=== PATIENT | male | born 1975 | race African-American/Black ===

== ENCOUNTER 2018-07-19 09:39 | Emergency (ER) | payer SELFPAY ==
[2018-07-19] MEDS ORDERED: OXYCODONE-ACETAMINOPHEN 5-325 MG TABLET PO ONE (10:08)
[2018-07-19] MEDS ORDERED: CEPHALEXIN 500 MG CAPSULE PO ONE (10:08)
[2018-07-19] MEDS ORDERED: SULFAMETHOXAZOLE/TRIMETHOPRIM 800-160 MG TABLET PO ONE (10:08)
--- NOTE | 2018-07-19 10:09 | ER Document Report ---
HPI - HPI Patient complains to provider of: Lump to right chest Onset: Other - 6 months Onset/Duration: Worse Quality of pain: Achy Pain Level: 4 Context: Patient complains of a lump to the right chest area that started to increase in size and tenderness over the past 4 days. Patient denies any fever or history of MRSA. Associated Symptoms: Other - Tender lump to right chest wall. denies: Fever Exacerbated by: Movement Relieved by: Denies Similar symptoms previously: No Recently seen / treated by doctor: No - ROS ROS below otherwise negative: Yes Systems Reviewed and Negative: Yes All other systems reviewed and negative - CONSTITUTIONAL Constitutional: DENIES: Fever - GASTROINTESTINAL Gastrointestinal: DENIES: Nausea - DERM Skin Color: Erythema Notes: Tender lump to the chest wall area Past Medical History - General Information source: Patient - Social History Smoking Status: Current Every Day Smoker Smoking Education Provided: Yes Frequency of alcohol use: None Drug Abuse: None 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 IN LAST 30 DAYS: No - HEENT HEENT: Atraumatic, Normocephalic - NECK Neck: Normal Inspection - RESPIRATORY Respiratory: No Respiratory Distress - BACK Back: Normal Inspection - MUSCULOSKELETAL/EXTREMETIES Musculoskeletal/Extremeties: MAEW, FROM - NEURO Level of Consciousness: Awake, Alert, Appropriate Motor/Sensory: No Motor Deficit - DERM Integumentary: Warm, Dry, Abscess - Right anterior chest wall area with overlying erythema Course - Vital Signs Vital signs: Temp Pulse Resp BP Pulse Ox 98.6 F 78 14 126/77 H 99 07/19/18 09:44 07/19/18 09:44 07/19/18 09:44 07/19/18 09:44 07/19/18 09:44 Procedures - Incision and Drainage Right Chest Type: Simple Anesthetic type: 1% Lidocaine Blade size: 11 I&D procedure: Betadine prep applied Incision Method: Incision made by scalpel Amount/type of drainage: mod amount of purulent drainage Adult Front & Back picture: 1 - abscess Discharge - Discharge Clinical Impression: Abscess, Encounter for incision and drainage procedure Condition: Stable Disposition: HOME, SELF-CARE Instructions: Abscess ([facility]), Cephalexin ([facility]), Post Incision and Drainage, Trimethoprim-Sulfa ([facility]) Additional Instructions: Return immediately for any new or worsening symptoms Followup with your primary care provider, call tomorrow to make a followup appointment Prescriptions: Cephalexin Monohydrate [Keflex 500 mg Capsule] 500 mg PO Q6H 5 Days capsule Naproxen [Naprosyn 250 Nmg Tablet] 1 tab PO BID #14 tablet Sulfamethoxazole/Trimethoprim [Bactrim Ds Tablet] 1 each PO BID #20 tablet Forms: Smoking Cessation Education, Return to Work Referrals: [facility] [Provider Group] - Follow up as needed
[2018-07-19 10:56] VITALS: BP 103/83
== END 2018-07-19 10:56 | disposition home or self-care (01) ==
LOC: ER 09:39
DX: L02.213 Cutaneous abscess of chest wall (principal); F17.200 Nicotine dependence, unspecified, uncomplicated
CPT/HCPCS: 99283

== ENCOUNTER 2019-03-09 06:09 | Emergency (ER) | payer SELFPAY ==
[2019-03-09 06:13] VITALS: BP 146/94
[2019-03-09] MEDS ORDERED: BENZONATATE 100 MG CAPSULE PO ONE (07:15)
[2019-03-09] MEDS ORDERED: AZITHROMYCIN 250 MG TABLET PO ONE (07:15)
[2019-03-09] MEDS ORDERED: PREDNISONE 20 MG TABLET PO ONE (07:15)
--- NOTE | 2019-03-09 15:37 | ER Document Report ---
Entered by BUDDY VEE SCRIBE 03/09/19 0719 Acting as scribe for:BIRD POWERS MD ED General - General Chief Complaint: Cough Stated Complaint: CHEST PAIN Time Seen by Provider: 03/09/19 07:05 Mode of Arrival: Ambulatory Information source: Patient Notes: Patient is a 43 year old male presenting to the emergency department complaining of a productive cough onset 2 weeks ago. Patient describes the cough as productive with green sputum that is worse in the morning. He states the cough has been progressively worsening over the last 2 weeks. He also complains of chest tightness only with cough. He denies any fevers. TRAVEL OUTSIDE OF THE [place] 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 Family History: Reviewed & Not Pertinent Patient has suicidal ideation: No Patient has homicidal ideation: No Review of Systems - Review of Systems Constitutional: No symptoms reported EENT: No symptoms reported Cardiovascular: See HPI Respiratory: See HPI, Cough, Sputum Gastrointestinal: No symptoms reported Genitourinary: No symptoms reported Male Genitourinary: No symptoms reported Musculoskeletal: No symptoms reported Hematologic/Lymphatic: No symptoms reported Neurological/Psychological: No symptoms reported -: Yes All other systems reviewed and negative Physical Exam - Vital signs Vitals: Temp Pulse Resp BP Pulse Ox 98.1 F 75 20 146/94 H 96 03/09/19 06:12 03/09/19 06:12 03/09/19 06:12 03/09/19 06:12 03/09/19 06:12 - Notes Notes: GENERAL: Alert, interacts well. No acute distress. HEAD: Normocephalic, atraumatic. EYES: Pupils equal, round, and reactive to light. Extraocular movements intact. ENT: Oral mucosa moist, tongue midline. Nares patent, no nasal septal hematoma, TM's intacts. NECK: Full range of motion. Supple. Trachea midline. LUNGS: Coarse breath sounds. Bronchitic cough with minimal rhonchi. No respiratory distress. HEART: Regular rate and rhythm. No murmurs, gallops, or rubs. ABDOMEN: Soft, non-tender. Non-distended. Bowel sounds present in all 4 quadrants. No guarding, rigidity, or rebound. EXTREMITIES: Moves all 4 extremities spontaneously. No edema, radial and dorsalis pedis pulses 2/4 bilaterally. No cyanosis. NEUROLOGICAL: Alert and oriented x3. Normal speech. PSYCH: Normal affect, normal mood. SKIN: Warm, dry, normal turgor. No rashes or lesions noted. Course - Vital Signs Vital signs: Temp Pulse Resp BP Pulse Ox 98.1 F 75 20 146/94 H 96 03/09/19 06:12 03/09/19 06:12 03/09/19 06:12 03/09/19 06:12 03/09/19 06:12 Discharge - Discharge Clinical Impression: Bronchitis Condition: Stable Disposition: HOME, SELF-CARE Additional Instructions: Bronchitis You have acute bronchitis. This disease is an infection or inflammation of the air passageways in your lungs. Symptoms usually include cough, low grade fever, shortness of breath, and wheezing. The cough usually persists for a couple of weeks. Most cases of bronchitis get better without antibiotics. We prescribe antibiotics when we believe bacteria are damaging your airways, or if there's high risk the bronchitis will worsen into pneumonia. Increase your fluid intake. A cool mist humidifier may make your lungs more comfortable. An expectorant (cough medicine that loosens phlegm) can help. If you smoke, STOP!!! Recovery from bronchitis can be somewhat slow, but you should see improvement within a day or two. Repeated episodes of bronchitis may result in lung damage -- for example, chronic bronchitis, recurrent pneumonias, or emphysema. Call the doctor if you develop increasing fever, shortness of breath, chest pain, bloody sputum, or otherwise worsen. If you have not improved at all after several days, contact the physician. Start the azithromycin antibiotic tomorrow. You have had today's dose here in the emergency room. Start the prednisone later this afternoon. Take the Tessalon Perles every 6-8 hours as needed to help control your cough. Try adding the generic version of Delsym DM to help control your cough. Drink plenty of fluids throughout the day in the evening. Try to rest as much as possible. Follow-up with a local medical doctor if not improving over the next several days. RETURN TO THE EMERGENCY ROOM IF ANY NEW OR WORSENING SYMPTOMS. Prescriptions: Azithromycin [Zithromax 250 mg Tablet] 250 mg PO DAILY #4 tablet Benzonatate [Tessalon Perles 100 mg Capsule] 100 mg PO ASDIR PRN #30 capsule PRN Reason: Prednisone [Deltasone 10 mg Tablet] 10 mg PO TID #10 tablet Scribe Attestation: 03/09/19 07:15 I personally performed the services described in the documentation, reviewed and edited the documentation which was dictated to the scribe in my presence, and it accurately records my words and actions. I personally performed the services described in the documentation, reviewed and edited the documentation which was dictated to the scribe in my presence, and it accurately records my words and actions.
== END 2019-03-09 07:39 | disposition home or self-care (01) ==
LOC: ER 06:09
DX: J40 Bronchitis, not specified as acute or chronic (principal); R05 Cough; R07.89 Other chest pain; F17.210 Nicotine dependence, cigarettes, uncomplicated
CPT/HCPCS: 99283; J7512

== ENCOUNTER 2019-04-05 17:33 | Emergency (ER) | payer SELFPAY ==
[2019-04-05] MEDS ORDERED: ASPIRIN 81 MG TABLET, CHEWABLE PO ONE (18:13)
--- NOTE | 2019-04-05 18:14 | ER Document Report ---
ED Medical Screen (RME) - General Chief Complaint: Chest Pain Stated Complaint: CHEST PAIN Time Seen by Provider: 04/05/19 18:13 Mode of Arrival: Ambulatory Information source: Patient Notes: Patient presents complaining of left-sided chest pain left upper quadrant pain for the past 2 days. Patient does report shortness of breath. No cough or cold symptoms, no nausea or vomiting. No significant medical history. I have greeted and performed a rapid initial assessment of this patient. A comprehensive ED assessment and evaluation of the patient, analysis of test results and completion of the medical decision making process will be conducted by additional ED providers. TRAVEL OUTSIDE OF THE [place] IN LAST 30 DAYS: No - Related Data Allergies/Adverse Reactions: No Known Allergies Allergy (Verified 04/05/19 17:34) Past Medical History Renal/ Medical History: Denies: Hx Peritoneal Dialysis Physical Exam - Vital signs Vitals: Temp Pulse Resp BP Pulse Ox 98.4 F 86 18 138/90 H 99 04/05/19 17:35 04/05/19 17:35 04/05/19 17:35 04/05/19 17:35 04/05/19 17:35 - Cardiovascular Rhythm: Regular Heart sounds: S1 appreciated, S2 appreciated Murmur: No Course - Vital Signs Vital signs: Temp Pulse Resp BP Pulse Ox 98.4 F 86 18 138/90 H 99 04/05/19 17:35 04/05/19 17:35 04/05/19 17:35 04/05/19 17:35 04/05/19 17:35
[2019-04-05 18:38] LABS: ABSOLUTE BASOPHILS # (AUTO) 0.1 10^3/uL (0.0-0.2); ABSOLUTE EOSINOPHILS # (AUTO) 0.1 10^3/uL (0.0-0.6); ABSOLUTE MONOCYTES (AUTO) 0.7 10^3/uL (0.1-1.4); BASOPHILS % (AUTO) 0.9 % (0-2); EOSINOPHILS % (AUTO) 1.6 % (0-6); HEMATOCRIT 43.6 % (37.9-51.0); HEMOGLOBIN 14.9 g/dL (13.5-17.0); LYMPHOCYTES % (AUTO) 33.4 % (13-45); MEAN CORPUSCULAR HEMOGLOBIN 30.5 pg (27.0-33.4); MEAN CORPUSCULAR HGB CONC 34.3 g/dL (32.0-36.0); MEAN CORPUSCULAR VOLUME 89 fl (80-97); MONOCYTES % (AUTO) 8.2 % (3-13); PLATELET COUNT 218 10^3/uL (150-450); RED BLOOD COUNT 4.91 10^6/uL (4.35-5.55); RED CELL DISTRIBUTION WIDTH 13.3 % (11.5-14.0); SEGMENTED NEUTROPHILS % (AUTO) 55.9 % (42-78); TOTAL CELLS COUNTED % (AUTO) 100 %
[2019-04-05 18:59] LABS: ALANINE AMINOTRANSFERASE 65 U/L (21-72); ALBUMIN 4.7 g/dL (3.5-5.0); ALKALINE PHOSPHATASE 66 U/L (38-126); ANION GAP 9 (5-19); ASPARTATE AMINO TRANSFERASE 40 U/L (17-59); BILIRUBIN,DIRECT 0.2 mg/dL (0.0-0.4); BILIRUBIN,TOTAL 0.4 mg/dL (0.2-1.3); BLOOD UREA NITROGEN 26 mg/dL (7-20); CALCIUM 9.6 mg/dL (8.4-10.2); CARBON DIOXIDE 26 mmol/L (22-30); CHLORIDE 103 mmol/L (98-107); GLUCOSE 87 mg/dL (75-110); LIPASE 358.2 U/L (23-300); POTASSIUM 4.2 mmol/L (3.6-5.0); SODIUM 137.9 mmol/L (137-145); TOTAL PROTEIN 7.7 g/dL (6.3-8.2)
--- NOTE | 2019-04-05 19:01 | RADIOLOGY REPORT (SQ) ---
EXAM DESCRIPTION: CHEST 2 VIEWS COMPLETED DATE/TIME: 04/05/2019 6:46 pm REASON FOR STUDY: cp COMPARISON: None. EXAM PARAMETERS: NUMBER OF VIEWS: two views TECHNIQUE: Digital Frontal and Lateral radiographic views of the chest acquired. RADIATION DOSE: NA LIMITATIONS: none FINDINGS: LUNGS AND PLEURA: No opacities, masses or pneumothorax. No pleural effusion. MEDIASTINUM AND HILAR STRUCTURES: No masses or contour abnormalities. HEART AND VASCULAR STRUCTURES: Heart normal size. No evidence for failure. BONES: No acute findings. HARDWARE: None in the chest. OTHER: No other significant finding. IMPRESSION: NO ACUTE RADIOGRAPHIC FINDING IN THE CHEST. TECHNICAL DOCUMENTATION: JOB ID: [id number] [employer] All Rights Reserved Reading location - IP/workstation name: [email or web address]
[2019-04-05] MEDS ORDERED: NORMAL SALINE 1000 ML 1,000 ML IV ONE (20:11)
--- NOTE | 2019-04-05 20:27 | EKG REPORT ---
SEVERITY:- ABNORMAL ECG - SINUS RHYTHM LEFT VENTRICULAR HYPERTROPHY : Confirmed by: Daisy Suresh 05-Apr-2019 20:26:22
--- NOTE | 2019-04-05 21:21 | RADIOLOGY REPORT (SQ) ---
EXAM DESCRIPTION: US ABDOMEN LIMITED COMPLETED DATE/TME: 04/05/2019 20:11 CLINICAL HISTORY: 43 years, Male, cp, elevated lipase EXAM DESCRIPTION: CLINICAL HISTORY: cp, elevated lipase COMPARISON: None. FINDINGS: Sonography was performed of the right upper quadrant. The pancreas is poorly seen because of bowel gas. The pancreatic head appears normal. Aorta appears normal. Liver span is 15.6 cm, and the liver is heterogeneous and hypoechoic area in the left lobe could represent a mass measuring 22 x 22 x 26 mm. Flow in the main portal vein is in the expected direction. Gallbladder is contracted. This is despite fasting for four hours. No sonographic Castillo's sign. Gallbladder wall is not thickened. Common duct is normal at 4.6 mm diameter. Right kidney measures 10.6 cm in span. No other acute abnormality. No calcified gallstones or pericholecystic fluid. No hydronephrosis. No renal stones are seen. IMPRESSION: Possible hepatic focal mass. Poor visualization of the pancreas. Follow-up of the liver possible mass is recommended.
--- NOTE | 2019-04-05 21:39 | ER Document Report ---
ED General - General Chief Complaint: Chest Pain Stated Complaint: CHEST PAIN Time Seen by Provider: 04/05/19 18:13 Primary Care Provider: [facility] [Provider Group] - Follow up in 3-5 days (primary care. ) PATRICIA BRAND MD [ACTIVE STAFF] - Follow up in 3-5 days (cardiology ) LASHAWN MALLORY MD [ACTIVE STAFF] - Follow up in 3-5 days (primary care. ) Mode of Arrival: Ambulatory Notes: Patient is a 43-year-old male that presents to the emergency department for chief complaint of chest pain. The patient reports that the pain started about a week ago. The currently rate the pain as 1 out of 10, and described as tingling sensation on his left side any points of the ribs laterally. They have had associated shortness of breath and cough. Denies any worsening on exertion, nausea, vomiting, diaphoresis. Their risk factors for heart disease include smoking, denies family history of early coronary disease, denies hypertension, diabetes, hyperlipidemia or obesity. Past Medical History: Denies chronic medical conditions Past Surgical History: Denies surgical history Social History: Admits to smoking cigarettes, denies alcohol or illicit drug use. Family History: Reviewed and noncontributory for presenting illness Allergies: Reviewed, see documented allergy list. REVIEW OF SYSTEMS: Other than noted above, the 12 point review of systems was reviewed with the patient and were negative, all pertinent findings are included in the HPI. PHYSICAL EXAMINATION: Vital signs reviewed, nursing noted reviewed. GENERAL: Well-appearing, well-nourished and in no acute distress. HEAD: Atraumatic, normocephalic. EYES: Eyes appear normal, extraocular movements intact, sclera anicteric, conjunctiva are normal. ENT: nares patent, oropharynx clear without exudates. Moist mucous membranes. NECK: Normal range of motion, supple without lymphadenopathy LUNGS: Breath sounds clear to auscultation bilaterally and equal. No wheezes rales or rhonchi. HEART: Regular rate and rhythm without murmurs ABDOMEN: Soft, nontender, normoactive bowel sounds. No rebound, guarding, or rigidity. No masses appreciated. EXTREMITIES: Nontender, good range of motion, no pitting or edema. NEUROLOGICAL: No focal neurological deficits. Moves all extremities spontaneously Motor and sensory grossly intact on exam. PSYCH: Normal mood, normal affect. SKIN: Warm, Dry, normal turgor, no rashes or lesions noted on exposed skin TRAVEL OUTSIDE OF THE [place] IN LAST 30 DAYS: No - Related Data Allergies/Adverse Reactions: No Known Allergies Allergy (Verified 04/05/19 17:34) Past Medical History - General Information source: Patient - Social History Smoking Status: Current Every Day Smoker Chew tobacco use (# tins/day): No Frequency of alcohol use: None Drug Abuse: None Family History: Reviewed & Not Pertinent Patient has suicidal ideation: No Patient has homicidal ideation: No Renal/ Medical History: Denies: Hx Peritoneal Dialysis Physical Exam - Vital signs Vitals: Temp Pulse Resp BP Pulse Ox 98.4 F 86 18 138/90 H 99 04/05/19 17:35 04/05/19 17:35 04/05/19 17:35 04/05/19 17:35 04/05/19 17:35 Course - Re-evaluation Re-evalutation: Presentation of chest pain in an otherwise well appearing patient. Low clinical suspicion for ACS given clinical history, exam, EKG without ST elevations or depressions, and negative initial troponin. HEART score less than or equal to 3. PE also seems unlikely given clinical history, absence of tachycardia or dyspnea. Patient is PERC criteria negative. CXR without evidence of pneumothorax or pneumonia. No widened mediastinum. Aortic dissection also seems unlikely given history, symmetric pulses, CXR, and vitals. HEART Score: History 0 ECG 0 Age 0 Risk Factors 0 Troponin 0 Total: 0 Chest pain in a patient without evidence of cardiac or other serious etiology on workup today. I discussed with patient that, based on their age, risk factors and emergency department testing today, the likelihood that their symptoms are related to a heart attack is very low (estimated risk of heart attack or over the next 30 days of less than 1%). The patient demonstrates decision making capacity and has verbalized an understanding of these risks to me. Based on this, the patient has chosen to follow-up as an outpatient. Usual chest pain return precautions reviewed. The patient states understanding and agreement with this plan. Repeat troponin was negative as well, patient appeared well on exam, for unclear reasons a right upper quadrant ultrasound was ordered in triage, this demonstrated a possible liver lesion, I reviewed these results with the patient and gave him a copy and stated he needs to follow-up with a dedicated liver ultrasound, which he is agreeable to, I asked him to follow-up with cardiology as well if his symptoms persisted, I do feel the symptoms are most likely pleurisy, and prescribed him naproxen to take which patient was agreeable to. Laboratory 04/05/19 04/05/19 04/05/19 18:25 18:25 18:25 WBC 9.0 RBC 4.91 Hgb 14.9 Hct 43.6 MCV 89 MCH 30.5 MCHC 34.3 RDW 13.3 Plt Count 218 Seg Neutrophils % 55.9 Lymphocytes % 33.4 Monocytes % 8.2 Eosinophils % 1.6 Basophils % 0.9 Absolute Neutrophils 5.0 Absolute Lymphocytes 3.0 Absolute Monocytes 0.7 Absolute Eosinophils 0.1 Absolute Basophils 0.1 Sodium 137.9 Potassium 4.2 Chloride 103 Carbon Dioxide 26 Anion Gap 9 BUN 26 H Creatinine 1.32 H Est GFR ( Amer) > 60 Est GFR (Non-Af Amer) > 60 Glucose 87 Calcium 9.6 Total Bilirubin 0.4 Direct Bilirubin 0.2 Neonat Total Bilirubin Not Reportable Neonat Direct Bilirubin Not Reportable Neonat Indirect Bili Not Reportable AST 40 ALT 65 Alkaline Phosphatase 66 Troponin I 0.018 Total Protein 7.7 Albumin 4.7 Lipase 358.2 H 04/05/19 21:55 WBC RBC Hgb Hct MCV MCH MCHC RDW Plt Count Seg Neutrophils % Lymphocytes % Monocytes % Eosinophils % Basophils % Absolute Neutrophils Absolute Lymphocytes Absolute Monocytes Absolute Eosinophils Absolute Basophils Sodium Potassium Chloride Carbon Dioxide Anion Gap BUN Creatinine Est GFR ( Amer) Est GFR (Non-Af Amer) Glucose Calcium Total Bilirubin Direct Bilirubin Neonat Total Bilirubin Neonat Direct Bilirubin Neonat Indirect Bili AST ALT Alkaline Phosphatase Troponin I 0.018 Total Protein Albumin Lipase Chest X-Ray 04/05/19 18:13 IMPRESSION: NO ACUTE RADIOGRAPHIC FINDING IN THE CHEST. Abdomen Ultrasound 04/05/19 20:11 IMPRESSION: Possible hepatic focal mass. Poor visualization of the pancreas. Follow-up of the liver possible mass is recommended. - Vital Signs Vital signs: Temp Pulse Resp BP Pulse Ox 98.4 F 86 17 134/105 H 100 04/05/19 17:35 04/05/19 17:35 04/05/19 23:05 04/05/19 23:06 04/05/19 23:05 - Laboratory Result Diagrams: 04/05/19 18:25 04/05/19 18:25 Laboratory results interpreted by me: 04/05/19 18:25 BUN 26 H Creatinine 1.32 H Lipase 358.2 H - EKG Interpretation by Me Additional EKG results interpreted by me: EKG demonstrates sinus rhythm with a ventricular rate of 85 bpm, slight left axis deviation, QTC 420 ms, there is a nonspecific T wave inversion in lead III, no ST elevation, and no prior for comparison. Discharge - Discharge Clinical Impression: Lesion of liver Chest pain Qualifiers: Chest pain type: unspecified Qualified Code(s): R07.9 - Chest pain, unspecified Condition: Stable Disposition: HOME, SELF-CARE Instructions: Chest Pain of Unclear Cause ([facility]) Additional Instructions: Please follow-up with a ged teacher, and also when she to follow-up with a primary care physician, there is a questionable lesion on your liver on the ultrasound, of uncertain cause, and this will need to be followed up on in the future with a dedicated imaging of the liver itself. I have provided you a copy of these results to take to the primary care office. I also want you to follow- up with a ged teacher to have a stress test sometime in the next 2 weeks. Prescriptions: RX: Naproxen [Naprosyn] 500 mg PO BID #30 tablet Referrals: LASHAWN MALLORY MD [ACTIVE STAFF] - Follow up in 3-5 days (primary care. ) [facility] [Provider Group] - Follow up in 3-5 days (primary care. ) PATRICIA BRAND MD [ACTIVE STAFF] - Follow up in 3-5 days (cardiology )
[2019-04-05 23:07] VITALS: BP 134/105
== END 2019-04-05 23:07 | disposition home or self-care (01) ==
LOC: ER 17:33
DX: R07.9 Chest pain, unspecified (principal); K76.9 Liver disease, unspecified; R06.02 Shortness of breath; R05 Cough; F17.210 Nicotine dependence, cigarettes, uncomplicated
CPT/HCPCS: 36415; 71046; 76705; 80053; 83690; 84484; 85025; 93005; 93010; 99285

== ENCOUNTER 2019-05-04 09:53 | Emergency (ER) | payer SELFPAY ==
[2019-05-04 10:21] VITALS: BP 135/90
[2019-05-04] MEDS ORDERED: ASPIRIN 81 MG TABLET, CHEWABLE PO ONE (10:27)
--- NOTE | 2019-05-04 10:28 | ER Document Report ---
ED Medical Screen (RME) - General Chief Complaint: Chest Pain Stated Complaint: CHEST PAIN Time Seen by Provider: 05/04/19 10:26 Mode of Arrival: Ambulatory Information source: Patient Notes: 43-year-old male presented to ED for complaint of chest pain off and on for the last 3 days. He states is intermittent pulsating pain. He states it will pulsate sometimes for a while and then. Patient states the pain also causes his left arm and fingers to go numb. He does not have any history of this in the past. He states he is trying to stop smoking and has had a patch on for 2 weeks and has not smoked. He does drink alcohol daily and does not do any drugs. Patient is alert oriented respirations regular and unlabored speaking in full sentences walks with a even steady gait. I have greeted and performed a rapid initial assessment of this patient. A comprehensive ED assessment and evaluation of the patient, analysis of test results and completion of medical decision making process will be conducted by an additional ED providers. Dictation of this chart was performed using voice recognition software; therefore, there may be some unintended grammatical errors. TRAVEL OUTSIDE OF THE [place] IN LAST 30 DAYS: No - Related Data Allergies/Adverse Reactions: No Known Allergies Allergy (Verified 05/04/19 09:54) Past Medical History Renal/ Medical History: Denies: Hx Peritoneal Dialysis Physical Exam - Vital signs Vitals: Temp Pulse Resp BP Pulse Ox 98.3 F 76 16 135/90 H 100 05/04/19 10:20 05/04/19 10:20 05/04/19 10:20 05/04/19 10:20 05/04/19 10:20 Course - Vital Signs Vital signs: Temp Pulse Resp BP Pulse Ox 98.3 F 76 16 135/90 H 100 05/04/19 10:20 05/04/19 10:20 05/04/19 10:20 05/04/19 10:20 05/04/19 10:20
--- NOTE | 2019-05-04 11:03 | RADIOLOGY REPORT (SQ) ---
EXAM DESCRIPTION: CHEST 2 VIEWS COMPLETED DATE/TIME: 05/04/2019 10:56 am REASON FOR STUDY: Chest pain COMPARISON: 04/05/2019 EXAM PARAMETERS: NUMBER OF VIEWS: two views TECHNIQUE: Digital Frontal and Lateral radiographic views of the chest acquired. RADIATION DOSE: NA LIMITATIONS: none FINDINGS: LUNGS AND PLEURA: No opacities, masses or pneumothorax. No pleural effusion. MEDIASTINUM AND HILAR STRUCTURES: No masses or contour abnormalities. HEART AND VASCULAR STRUCTURES: Heart normal size. No evidence for failure. BONES: No acute findings. HARDWARE: None in the chest. OTHER: No other significant finding. IMPRESSION: NO ACUTE RADIOGRAPHIC FINDING IN THE CHEST. TECHNICAL DOCUMENTATION: JOB ID: [id number] [employer]- All Rights Reserved Reading location - IP/workstation name: [email or web address]
[2019-05-04 11:22] LABS: ABSOLUTE BASOPHILS # (AUTO) 0.1 10^3/uL (0.0-0.2); ABSOLUTE EOSINOPHILS # (AUTO) 0.1 10^3/uL (0.0-0.6); ABSOLUTE LYMPHOCYTES (AUTO) 2.2 10^3/uL (0.5-4.7); ABSOLUTE MONOCYTES (AUTO) 0.6 10^3/uL (0.1-1.4); ABSOLUTE NEUT (AUTO) 3.5 10^3/uL (1.7-8.2); BASOPHILS % (AUTO) 0.8 % (0-2); EOSINOPHILS % (AUTO) 1.8 % (0-6); HEMOGLOBIN 14.9 g/dL (13.5-17.0); MEAN CORPUSCULAR HEMOGLOBIN 30.3 pg (27.0-33.4); MEAN CORPUSCULAR HGB CONC 33.8 g/dL (32.0-36.0); MEAN CORPUSCULAR VOLUME 90 fl (80-97); MONOCYTES % (AUTO) 9.6 % (3-13); PLATELET COUNT 220 10^3/uL (150-450); RED BLOOD COUNT 4.91 10^6/uL (4.35-5.55); RED CELL DISTRIBUTION WIDTH 13.5 % (11.5-14.0); SEGMENTED NEUTROPHILS % (AUTO) 53.8 % (42-78); TOTAL CELLS COUNTED % (AUTO) 100 %; WHITE BLOOD COUNT 6.5 10^3/uL (4.0-10.5)
[2019-05-04 11:24] LABS: INTERNATIONAL RATION (INR) 0.93; PROTHROMBIN TIME 12.4 SEC (11.4-15.4)
[2019-05-04 11:25] LABS: APPEARANCE,URINE CLEAR; BILIRUBIN,URINE NEGATIVE (NEGATIVE); COLOR,URINE YELLOW; GLUCOSE, URINE NEGATIVE (NEGATIVE); KETONES,URINE NEGATIVE (NEGATIVE); LEUKOCYTE ESTERASE,URINE NEGATIVE (NEGATIVE); NITRITE,URINE NEGATIVE (NEGATIVE); PARTIAL THROMBOPLASTIN TIME 28.1 SEC (23.5-35.8); PROTEIN,URINE NEGATIVE (NEGATIVE); URINE SPECIFIC GRAVITY 1.024; UROBILINOGEN,URINE NEGATIVE mg/dL (<2.0)
[2019-05-04 11:52] LABS: ALANINE AMINOTRANSFERASE 47 U/L (21-72); ALBUMIN 4.6 g/dL (3.5-5.0); ALKALINE PHOSPHATASE 60 U/L (38-126); ANION GAP 5 (5-19); ASPARTATE AMINO TRANSFERASE 45 U/L (17-59); BILIRUBIN,DIRECT 0.3 mg/dL (0.0-0.4); BILIRUBIN,TOTAL 0.3 mg/dL (0.2-1.3); BLOOD UREA NITROGEN 15 mg/dL (7-20); CALCIUM 9.6 mg/dL (8.4-10.2); CARBON DIOXIDE 30 mmol/L (22-30); CHLORIDE 107 mmol/L (98-107); CREATINE KINASE 604 U/L (55-170); GLUCOSE 80 mg/dL (75-110); POTASSIUM 4.4 mmol/L (3.6-5.0); TOTAL PROTEIN 7.6 g/dL (6.3-8.2)
[2019-05-04 11:55] LABS: URINE AMPHETAMINES SCREEN NEGATIVE; URINE BARBITURATES SCREEN NEGATIVE; URINE BENZODIAZEPINES SCREEN NEGATIVE; URINE COCAINE SCREEN NEGATIVE; URINE MARIJUANA (THC) SCREEN NEGATIVE; URINE METHADONE SCREEN NEGATIVE; URINE PHENCYCLIDINE SCREEN NEGATIVE
[2019-05-04 12:04] LABS: CREATINE KINASE MB 1.89 ng/mL (<4.55); TROPONIN I 0.014 ng/mL
--- NOTE | 2019-05-04 15:03 | ER Document Report ---
ED Cardiac - General Chief Complaint: Chest Pain Stated Complaint: CHEST PAIN Time Seen by Provider: 05/04/19 10:26 Mode of Arrival: Ambulatory TRAVEL OUTSIDE OF THE [place] IN LAST 30 DAYS: No - HPI Notes: 43-year-old male to the emergency department with complaints of right-sided chest pain that has been occurring off and on for the past 3 days. He states that his right chest is tender to palpation and he has mild increase in pain with big deep breath. He states that the pain runs into his arm and he gets some numbness and tingling into his fingers. He states that his pain is not precipitated by anything or made worse by anything. He denies shortness of breath with his pain. He states that the pain will come on last for a little while and then go away. He has not taken anything for the pain. He is not diabetic. Does not have hypertension or hyperlipidemia. He just recently quit smoking 2 weeks ago and is wearing a patch. He denies any family history of heart attacks. He has not recently been traveling. He denies any leg swelling. 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 He denies any recent chest trauma. Denies any recent heavy lifting. He was seen April 05 for something similar and was told to follow-up with cardiology. He also had an incidental liver mass that was found on ultrasound at that time. He was encouraged to follow-up about this mass. He has not followed up. He denies any right upper quadrant abdominal pain. He denies any diaphoresis. He denies any nausea or vomiting. He denies any back pain, jaw pain, left shoulder pain, cough, fevers, sick contact, or any other complaints. - Related Data Allergies/Adverse Reactions: No Known Allergies Allergy (Verified 05/04/19 09:54) Past Medical History - General Information source: Patient, Relative - Social History Smoking Status: Former Smoker - Quit smoking 2 weeks ago Frequency of alcohol use: Occasional - 1-2 times a week Drug Abuse: None Family History: Reviewed & Not Pertinent. denies: CAD Patient has suicidal ideation: No Patient has homicidal ideation: No Renal/ Medical History: Denies: Hx Peritoneal Dialysis Review of Systems - Review of Systems Constitutional: denies: Chills, Fever EENT: No symptoms reported Cardiovascular: Chest pain. denies: Palpitations, Heart racing, Orthopnea, Dyspnea, Syncope, Dizziness, Lightheaded Respiratory: Hurts to breathe. denies: Cough, Short of breath Gastrointestinal: denies: Abdominal pain, Diarrhea, Nausea, Vomiting Genitourinary: denies: Frequency, Flank pain, Hematuria Musculoskeletal: denies: Back pain, Neck pain, Leg swelling, Ankle swelling Skin: No symptoms reported Neurological/Psychological: Numbness - Numbness and tingling into his right fingertips when he is having episode of chest pain, Tingling -: Yes All other systems reviewed and negative Physical Exam - Vital signs Vitals: Temp Pulse Resp BP Pulse Ox 98.3 F 76 16 135/90 H 100 05/04/19 10:20 05/04/19 10:20 05/04/19 10:20 05/04/19 10:20 05/04/19 10:20 Interpretation: Hypertensive - Very mild elevated blood pressure 135/90 - General General appearance: Appears well, Alert - HEENT Head: Normocephalic, Atraumatic Eyes: Normal Pupils: PERRL - Respiratory Respiratory status: No respiratory distress Chest status: Tender, Pain on movement Breath sounds: Normal Chest palpation: Tender - There is tenderness to palpation over the right anterior chest wall at the level of the nipple and down along the ribs. There is no step off or deformity. There is no crepitus.. No: Flail segment, Subcutaneous emphysema - Cardiovascular Rhythm: Regular Heart sounds: Normal auscultation Murmur: No - Abdominal Inspection: Normal Distension: No distension Bowel sounds: Normal Tenderness: Nontender. No: McBurney's point, Castillo's sign, Guarding, Rebound Organomegaly: No organomegaly - Back Back: Normal, Nontender. No: CVA tenderness - Extremities General upper extremity: Normal inspection, Normal ROM, Normal strength General lower extremity: Normal inspection, Normal ROM, Normal strength - Neurological Neuro grossly intact: Yes Cognition: Normal Orientation: AAOx4 Sofia Coma Scale Eye Opening: Spontaneous Sofia Coma Scale Verbal: Oriented Sofia Coma Scale Motor: Obeys Commands Sofia Coma Scale Total: 15 Speech: Normal Motor strength normal: LUE, RUE, LLE, RLE Sensory: Normal Notes: Sensation is grossly intact. - Psychological Associated symptoms: Normal affect, Normal mood - Skin Skin Temperature: Warm Skin Moisture: Dry Skin Color: Normal Course - Re-evaluation Re-evalutation: 05/04/19 15:23 43-year-old male to the emergency department with complaints of right-sided chest pain that is ongoing for the past 3 days. States the pain comes and goes and is sharp and aching when it occurs. He has a heart score of 0. He has tenderness to palpation over the chest wall. His first troponin is negative. Will repeat troponin and treat pain further. Patient agrees with the plan. Noted mildly elevated CPKpatient has no acute kidney injury or any other evidence for dehydration. Will give a bolus of fluid. 05/04/19 16:28 Progress: Noted second troponin which is remaining negative. Did on patient and he states that after pain medicine his pain has gotten better. He has a heart score of 0. Doubt that this is cardiac in origin particularly because his exam is most consistent with musculoskeletal pain. We [facility]. Reminded him again of his liver lesion that was diagnosed on his last visit here and encouraged him to follow up about that with [facility]. I have encouraged him to return if he has any worsening chest pain, shortness of breath, diaphoresis, abdominal pain, intractable vomiting, any other concerns. We will send home a small amount of pain medicine and work note. Patient agrees with the plan. - Vital Signs Vital signs: Temp Pulse Resp BP Pulse Ox 98.3 F 76 16 135/90 H 100 05/04/19 10:20 05/04/19 10:20 05/04/19 10:20 05/04/19 10:20 05/04/19 10:20 - Laboratory Result Diagrams: 05/04/19 11:03 05/04/19 11:03 Laboratory results interpreted by me: 05/04/19 11:03 Creatine Kinase 604 H - Diagnostic Test Radiology reviewed: Image reviewed, Reports reviewed - EKG Interpretation by Me Rate: Normal Rhythm: NSR When compared to previous EKG there are: No significant change Additional EKG results interpreted by me: 05/04/19 15:22 No STEMI, there is T wave inversion in lead III and aVF. This is present in prior EKG from 04/05/2019. Positive left ventricular hypertrophy Discharge - Discharge Clinical Impression: Right-sided chest wall pain Condition: Stable Disposition: HOME, SELF-CARE Instructions: Chest Wall Pain ([facility]) Additional Instructions: FOLLOW UP WITH PRIMARY CARE CLINIC LISTED FOR FOLLOW UP OF YOUR CHEST PAIN AND ALSO FOR FURTHER ASSESSMENT OF LIVER LESION SEEN ON YOUR LAST ER VISIT. TAKE MEDICINE PRESCRIBED. RETURN IMMEDIATELY IF WORSENING PAIN, SHORTNESS OF BREATH, PASSING OUT, ABDOMINAL PAIN, INTRACTABLE VOMITING, OR ANY OTHER CONCER NS. CONTINUE SMOKING CESSATION. Prescriptions: Tramadol HCl [Ultram 50 mg Tablet] 50 mg PO Q8H PRN #9 tab PRN Reason: Forms: Return to Work Referrals: [facility] [Provider Group] - Follow up tomorrow (CALL CLINIC TO SET UP AN APPOINTMENT BY THE END OF THE WEEK)
[2019-05-04] MEDS ORDERED: OXYCODONE-ACETAMINOPHEN 5-325 MG TABLET PO ONE (15:12)
[2019-05-04] MEDS ORDERED: NORMAL SALINE 1000 ML 1,000 ML IV ONE (15:12)
--- NOTE | 2019-05-04 23:46 | EKG REPORT ---
SEVERITY:- ABNORMAL ECG - SINUS RHYTHM LEFT VENTRICULAR HYPERTROPHY BORDERLINE T ABNORMALITIES, INFERIOR LEADS : Confirmed by: Daisy Suresh 04-May-2019 23:45:49
== END 2019-05-04 16:56 | disposition home or self-care (01) ==
LOC: ER 09:53
DX: R07.89 Other chest pain (principal); R07.1 Chest pain on breathing; R20.0 Anesthesia of skin; R20.2 Paresthesia of skin; M79.603 Pain in arm, unspecified; I51.7 Cardiomegaly; K76.9 Liver disease, unspecified; Z87.891 Personal history of nicotine dependence
CPT/HCPCS: 93005; 36415; 82553; 82550; 85025; 85610; 85730; 80053; 81001; 84484; 80307; 71046; 93010; J7030